=== PATIENT | male | born 1990 | race Caucasian/White ===

== ENCOUNTER 2018-06-06 19:04 | Inpatient (IN) | payer SELFPAY ==
[~2018-06-06] VITALS: Ht 182.9 cm; Wt 100.0 kg
--- NOTE | ~2018-06-06 | MORECARE ---
CASE MANAGEMENT DISCHARGE SUMMARY PATIENT: ROSHNI ROSS UNIT: [id number] ADM DATE: 06/06/18 AGE: 27 : 86 SEX: M ROOM/BED: D.2133 AUTHOR: RYLEE PETTIT PHYSICIAN: REFERRING PHYSICIAN: TRICIA CAPPS MD DATE OF SERVICE: 06/07/18 Discharge Plan Patient Name: ROSHNI ROSS Facility: [facility]:[place] : 1990 Planned Disposition: Home Anticipated Discharge Date: 06/07/18 Discharge Date: Expected LOS: 1 Initial Reviewer: [email or web address] Initial Review Date: 06/07/2018 Generated: 06/07/18 4:11 pm Comments DCP- Discharge Planning Updated by [email or web address]: Oscar Holly on 06/07/18 2:[address] Patient Name: ROSHNI ROSS Admission Status: ER Accout number: [id number] Admission Date: 06-06-2018 : 1990 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 PT WAS NOT IN ROOM AT APPROXIMATELY 1445 HOURS. PT'S BELONGINGS NOT IN ROOM, GOWN ON BED, TELEMETRY ON BEDSIDE TABLE. BEDSIDE NURSE NOTIFIED. PT HAD NOT YET RECEIVED HIS DISCHARGE PAPERS. CM WILL ATTEMPT TO MEET WITH PT TO ASSESS FOR DISCHARGE NEEDS IF PT RETURNS. Small Business Representative: Oscar Holly Patient Name: ROSHNI ROSS Page [id number] at 1512 All edits/amendments must be made on the electronic document DICTATION DATE: 06/07/18 151 MACHINE SHOP WORKER: RUDY 06/07/18 151 RPT#: [id number] DC DATE: STATUS: ADM IN [facility] [address] [place] [address] END OF REPORT
[2018-06-06 20:02] LABS: BASOPHILS 0.3 % (0-2); EOSINOPHILS 3.2 % (0-7); HEMATOCRIT 41.2 % (42.0-54.0); HEMOGLOBIN 14.3 g/dL (13.5-17.5); IMMATURE GRANULOCYTES 0.1 % (0-5); LYMPHOCYTES 21.6 % (15-50); MCH 30.9 pg (26.0-34.0); MCHC 34.7 g/dL (31.0-37.0); MEAN PLATELET VOLUME 9.2 fL (7.4-10.4); MONOCYTES 13.5 % (2-11); NEUTROPHILS 61.3 % (40-80); PLATELET COUNT 182 10x3/uL (130-400); RBC 4.63 10x6/uL (4.20-6.10); RDW 12.7 % (11.5-14.5); WBC 7.8 10x3/uL (4.8-10.8)
[2018-06-06 20:14] LABS: APPEARANCE CLEAR (CLEAR); COLOR YELLOW (YELLOW); NITRITE NEGATIVE (NEGATIVE); PROTEIN TRACE mg/dL (NEGATIVE)
[2018-06-06 20:15] LABS: BILIRUBIN NEGATIVE (NEGATIVE); EPITHELIAL CELLS RARE /hpf (0-5); GLUCOSE NEGATIVE (NEGATIVE); KETONE NEGATIVE (NEGATIVE); RED CELLS - URINE 0-5 /hpf (0-5); UROBILINOGEN NORMAL (NORMAL); WHITE CELLS - URINE 0-5 /hpf (0-5)
[2018-06-06 20:17] LABS: ALBUMIN 3.1 g/dL (3.4-5.0); ANION GAP 9.7 mmol/L (8-16); BILIRUBIN - TOTAL 0.37 mg/dL (0.2-1.3); CALCIUM 8.2 mg/dL (8.5-10.1); CARBON DIOXIDE 30.5 mmol/L (21.0-32.0); CREATININE - SERUM 1.5 mg/dL (0.6-1.3); POTASSIUM - SERUM 4.2 mmol/L (3.5-5.1); PROTEIN - SERUM 6.7 g/dL (6.4-8.2)
[2018-06-07 00:58] VITALS: BMI 29.9
[2018-06-07 02:11] VITALS: BP 113/77
[2018-06-07 04:00] VITALS: BP 121/74
[2018-06-07 06:18] LABS: BASOPHILS 0.3 % (0-2); EOSINOPHILS 3.9 % (0-7); HEMATOCRIT 43.5 % (42.0-54.0); HEMOGLOBIN 14.7 g/dL (13.5-17.5); IMMATURE GRANULOCYTES 0.1 % (0-5); LYMPHOCYTES 16.3 % (15-50); MCH 30.4 pg (26.0-34.0); MCHC 33.8 g/dL (31.0-37.0); MCV 90.1 fL (80.0-100.0); MEAN PLATELET VOLUME 9.9 fL (7.4-10.4); MONOCYTES 17.9 % (2-11); NEUTROPHILS 61.5 % (40-80); PLATELET COUNT 210 10x3/uL (130-400); RBC 4.83 10x6/uL (4.20-6.10); RDW 12.9 % (11.5-14.5); WBC 6.9 10x3/uL (4.8-10.8)
[2018-06-07 06:28] LABS: CALC OSMOLALITY 281 mosm/kg (275-300); CALCIUM 8.2 mg/dL (8.5-10.1); CARBON DIOXIDE 26.3 mmol/L (21.0-32.0); CHLORIDE - SERUM 106 mmol/L (98-107); CREATININE - SERUM 1.2 mg/dL (0.6-1.3); GLUCOSE 87 mg/dL (74-106); POTASSIUM - SERUM 4.5 mmol/L (3.5-5.1); SODIUM 141 mmol/L (136-145); UREA NITROGEN 19 mg/dL (7-18); eGFR NON AFRICAN AMERICAN 76 mL/min (90-120)
[2018-06-07 07:33] VITALS: BP 124/74
[2018-06-07 10:13] VITALS: Ht 182.9 cm; Wt 100.0 kg
[2018-06-07 11:43] VITALS: BP 123/82
[2018-06-07 12:00] VITALS: BP 123/82
== END 2018-06-07 16:56 | disposition left against medical advice (07) | DRG 694 ==
LOC: D.ER 19:04 → D.M2 20:55 → D.EDHOLD 20:55 → D.M2 23:50
PROVIDERS: Family Medicine
DX: N20.2 Calculus of kidney with calculus of ureter (principal); N17.9 Acute kidney failure, unspecified; F17.210 Nicotine dependence, cigarettes, uncomplicated